=== PATIENT | male | born 1940 | race Caucasian/White ===

== ENCOUNTER 2016-12-21 19:54 | Emergency (ER) | payer OTHER ==
[~2016-12-21] VITALS: Ht 172.7 cm; Wt 79.0 kg
[~2016-12-21 19:54] MED LIST: ALLOPURINOL100 MG PO; ALLOPURINOL300 MG PO; APRESOLINE10 MG PO; APRESOLINE25 MG PO; APRESOLINE50 MG PO; ARICEPT10 MG PO; CLONIDINE HCL0.1 MG PO; COENZYME Q1010 M1 PO; DAILY VITAMIN1 EAC8 PO; FISH OIL 1,0001 EAC7 PO; HYDRALAZINE HCL10 MG PO; IMDUR30 MG PO; IMDUR60 MG PO; LANTUS 10100 UNITS/ SC; LEVEMIR FL100 UNIT/1 SC; LEVEMIR FL100 UNITS/ SC; LEVEMIR100 UNIT/2 SC; LEVOTHYROXINE50 MCG PO; LISINOPRIL5 MG PO; LO-DOSE ASPIRIN81 M1 PO; LO-DOSE ASPIRIN81 M2 PO; LOPRESSOR50 MG PO; METOPROLOL TART50 MG PO; NOVOLOG PE100 UNITS/ SC; OMEGA-31000 M1 PO; PANTOPRAZOLE SO40 MG PO; PRILOSEC20 MG PO; PROMETHAZINE HC25 M1 PO; RESVERATROL250 MG PO; SENNA PLUS TAB1 EACH PO; SYNTHROID50 MCG PO; THERAGRAN1 TABLET PO; THIAMINE HCL100 MG PO; TYLENOL REGULA325 MG PO; UBIQUINOL100 MG PO; UNABLE TO OBTAIN; VITAMIN D31000 UNI2 PO; VITAMIN D31000 UNIT PO; ZOFRAN4 MG PO; alpha lipoic acid
[2016-12-21 20:20] LABS: HEMATOCRIT 41.4 % (38.0-50.0); MCH 29.9 PG (29.0-34.0); MCHC 35.3 G/DL (30.0-36.0); MCV 84.8 FL (86-99); MEAN PLAT.VOLUME 9.3 uM^3 (9.0-12.4); PLATELET COUNT 251 K/uL (156-360); RBC DIS.WIDTH-CV 13.1 % (11.8-14.6); RBC DIS.WIDTH-SD 40.4 % (39-53); RED BLOOD COUNT 4.88 M/uL (4.00-5.50); WHITE BLOOD COUNT 12.6 K/uL (4.1-10.2)
[2016-12-21 20:28] LABS: CHLORIDE 102 mEq/L (99-109); POTASSIUM 4.9 mEq/L (3.7-5.4); SODIUM 135 mEq/L (136-147)
[2016-12-21 20:29] LABS: GLUCOSE 335 mg/dL (70-99)
[2016-12-21 20:31] LABS: ANION GAP 12 MEQ/L (2-14)
[2016-12-21 20:33] LABS: GFR ESTIMATE (CALCULATED) 24 mL/min/
[2016-12-21 20:34] LABS: UREA NITROGEN (BUN) 43 mg/dL (9-23)
[2016-12-21 22:42] LABS: ADD MIUA? YES; BILIRUBIN NEGATIVE; BLOOD MODERATE; COLOR YELLOW ((YELLOW)); GLUCOSE (STRIP) >=500; KETONES NEGATIVE; LEUKOCYTES NEGATIVE; NITRITE NEGATIVE; PROTEIN (STRIP) >=500; SPECIFIC GRAVITY 1.013 (1.000-1.030); UROBILINOGEN 0.2 MG/DL (0.2-1.0)
[2016-12-21 22:51] LABS: BACTERIA NONE SEEN /HPF; EPITHELIAL CELLS NONE SEEN /HPF; MUCUS NONE SEEN /LPF; RED BLOOD CELLS NONE SEEN /HPF (0-5); UCUL ADDED? NO; WHITE BLOOD CELLS 0-5 /HPF (0-5)
[2016-12-22 00:21] VITALS: BP 123/70
== END 2016-12-22 00:29 | disposition short-term general hospital (02) ==
LOC: EME 19:54
PROVIDERS: Emergency Medicine
DX: N17.9 Acute kidney failure, unspecified (principal); E86.0 Dehydration; R41.82 Altered mental status, unspecified; I12.9 Hypertensive chronic kidney disease with stage 1 through stage 4 chronic kidney disease, or unspecified chronic kidney disease; E11.22 Type 2 diabetes mellitus with diabetic chronic kidney disease; N18.9 Chronic kidney disease, unspecified; Z88.0 Allergy status to penicillin; Z87.891 Personal history of nicotine dependence
CPT/HCPCS: 70450; 71020; 80048; 81003; 85027; 93005; 99281; 99285; J7030

== ENCOUNTER 2017-01-24 10:42 | Observation (INO) | payer OTHER ==
[~2017-01-24] VITALS: Ht 172.7 cm; Wt 79.6 kg
[2017-01-24 12:05] LABS: BASOPHIL COUNT 0.1 K/uL (0-0.1); EOSINOPHIL (%) 1.1 % (0-5); EOSINOPHIL COUNT 0.2 K/uL (0-0.3); IMMATURE GRANULOCYTE (%) 0.7 % (0.0-0.7); IMMATURE GRANULOCYTE COUNT 0.1 K/uL; INSTRUMENT ABS NEUTROPHIL CT 12.3 K/uL; LYMPHOCYTE COUNT 1.7 K/uL (1.0-2.8); MCH 29.5 PG (29.0-34.0); MCHC 34.2 G/DL (30.0-36.0); MCV 86.4 FL (86-99); MEAN PLAT.VOLUME 9.5 uM^3 (9.0-12.4); MONOCYTE (%) 4.9 % (3-12); MONOCYTE COUNT 0.7 K/uL (0-0.8); NEUTROPHIL (%) 81.9 % (45-76); NEUTROPHIL COUNT 12.3 K/uL (1.8-6.4); PLATELET COUNT 245 K/uL (156-360); RBC DIS.WIDTH-CV 13.3 % (11.8-14.6); RBC DIS.WIDTH-SD 41.8 % (39-53)
[2017-01-24 12:16] LABS: CHLORIDE 105 mEq/L (99-109); POTASSIUM 5.9 mEq/L (3.7-5.4); SODIUM 137 mEq/L (136-147)
[2017-01-24 12:18] LABS: GLUCOSE 123 mg/dL (70-99)
[2017-01-24 12:19] LABS: ANION GAP 8 MEQ/L (2-14)
[2017-01-24 12:22] LABS: GFR ESTIMATE (CALCULATED) 26 mL/min/
[2017-01-24 12:23] LABS: UREA NITROGEN (BUN) 40 mg/dL (9-23)
[2017-01-24 12:26] LABS: TROP-I INTERPRETATION NEGATIVE; TROPONIN-I < 0.01 ng/mL (0.0-0.30)
[2017-01-24] MEDS ORDERED: HYDRALAZINE HCL10 MG PO (13:41)
[2017-01-24] MEDS ORDERED: NOVOLOG PE100 UNITS/ SC (13:44)
[2017-01-24] MEDS ORDERED: LEVEMIR FL100 UNIT/1 SC ×2 (13:46)
[2017-01-24] MEDS ORDERED: ISOSORBIDE MONO30 MG PO (13:47)
[2017-01-24] MEDS ORDERED: DAILY VITE1 EAC1 PO (13:48)
[2017-01-24] MEDS ORDERED: ASPIR 8181 M1 PO (13:50)
[2017-01-24] MEDS ORDERED: FISH OIL 1,0001 EAC7 PO (13:50)
[2017-01-24] MEDS ORDERED: CO Q-1030 MG PO (13:50)
[2017-01-24] MEDS ORDERED: THIAMINE HCL100 MG PO ×2 (13:51→14:01)
[2017-01-24 15:31] VITALS: BP 189/84
[2017-01-24 18:02] LABS: POINT-OF-CARE METER ID UU13113700
[2017-01-24 19:15] VITALS: BP 174/78
[2017-01-24 19:20] LABS: TROP-I INTERPRETATION NEGATIVE; TROPONIN-I < 0.01 ng/mL (0.0-0.30)
[2017-01-24 23:09] LABS: POINT-OF-CARE METER ID UU13113831
[2017-01-25 00:10] VITALS: BP 169/73
[2017-01-25 02:04] LABS: TROP-I INTERPRETATION NEGATIVE; TROPONIN-I < 0.01 ng/mL (0.0-0.30)
[2017-01-25 04:15] VITALS: BP 149/67
[2017-01-25 06:53] LABS: ANION GAP 7 MEQ/L (2-14); CHLORIDE 110 MEQ/L (99-109); SAMPLE HEMOLYSIS CHECK 0; SAMPLE ICTERIC CHECK 0; SAMPLE LIPEMIA CHECK 0; SODIUM 139 MEQ/L (136-147); UREA NITROGEN (BUN) 38 mg/dL (9-23)
[2017-01-25 06:54] LABS: GFR ESTIMATE (CALCULATED) 33 mL/min/; GLUCOSE 50 mg/dL (70-99); POTASSIUM 4.5 MEQ/L (3.7-5.4)
[2017-01-25 07:26] VITALS: BP 197/90
[2017-01-25 07:28] LABS: POINT-OF-CARE METER ID UU13113700
[2017-01-25 07:51] LABS: POINT-OF-CARE METER ID UU13113700
[2017-01-25 10:30] VITALS: BP 154/71
[2017-01-25 10:44] LABS: POINT-OF-CARE METER ID UU13113700
[2017-01-25] MEDS ORDERED: LEVEMIR FL100 UNIT/1 SC ×2 (11:50→11:51)
== END 2017-01-25 14:18 | disposition home or self-care (01) ==
LOC: EME → EDBD 10:42 → EDSEX 10:42 → EDOF 12:55 → 5WEST 12:55
PROVIDERS: Emergency Medicine; Hospitalist; Internal Medicine
DX: R55 Syncope and collapse (principal); F32.9 Major depressive disorder, single episode, unspecified; K21.9 Gastro-esophageal reflux disease without esophagitis; Z88.0 Allergy status to penicillin; Z87.891 Personal history of nicotine dependence; E86.0 Dehydration; R07.9 Chest pain, unspecified; F03.90 Unspecified dementia, unspecified severity, without behavioral disturbance, psychotic disturbance, mood disturbance, and anxiety; I25.10 Atherosclerotic heart disease of native coronary artery without angina pectoris; I25.2 Old myocardial infarction; E11.22 Type 2 diabetes mellitus with diabetic chronic kidney disease; N18.3 Chronic kidney disease, stage 3 (moderate); I12.9 Hypertensive chronic kidney disease with stage 1 through stage 4 chronic kidney disease, or unspecified chronic kidney disease; E78.5 Hyperlipidemia, unspecified; Z79.4 Long term (current) use of insulin; E03.9 Hypothyroidism, unspecified; E11.42 Type 2 diabetes mellitus with diabetic polyneuropathy; I95.1 Orthostatic hypotension; Z95.5 Presence of coronary angioplasty implant and graft; F43.10 Post-traumatic stress disorder, unspecified; E87.5 Hyperkalemia
CPT/HCPCS: 70450; 71010; 80048; 82948; 84443; 84484; 85025; 87641; 93005; 93306; 93880; 95819; 99281; 99285; G0378; J0360; J1644; J7030

== ENCOUNTER 2017-07-02 14:25 | Emergency (ER) | payer OTHER ==
[~2017-07-02] VITALS: Ht 175.3 cm; Wt 86.4 kg
[~2017-07-02 14:25] MED LIST changes: +ASPIR 8181 M1 PO; +CO Q-1030 MG PO; +DAILY VITE1 EAC1 PO; +ISOSORBIDE MONO30 MG PO
[2017-07-02 15:39] LABS: HEMATOCRIT 37.7 % (38.0-50.0); MCH 30.6 PG (29.0-34.0); MCHC 35.3 G/DL (30.0-36.0); MCV 86.7 FL (86-99); MEAN PLAT.VOLUME 9.9 uM^3 (9.0-12.4); PLATELET COUNT 247 K/uL (156-360); RBC DIS.WIDTH-CV 13.2 % (11.8-14.6); RBC DIS.WIDTH-SD 41.1 % (39-53); RED BLOOD COUNT 4.35 M/uL (4.00-5.50); WHITE BLOOD COUNT 15.8 K/uL (4.1-10.2)
[2017-07-02 15:47] LABS: CHLORIDE 106 mEq/L (99-109); POTASSIUM 4.7 mEq/L (3.7-5.4); SODIUM 137 mEq/L (136-147)
[2017-07-02 15:49] LABS: GLUCOSE 105 mg/dL (70-99)
[2017-07-02 15:50] LABS: ANION GAP 9 MEQ/L (2-14)
[2017-07-02 15:53] LABS: GFR ESTIMATE (CALCULATED) 28 mL/min/
[2017-07-02 15:54] LABS: UREA NITROGEN (BUN) 41 mg/dL (9-23)
[2017-07-02 16:01] LABS: TROP-I INTERPRETATION NEGATIVE; TROPONIN-I 0.01 ng/mL (0.0-0.30)
[2017-07-02 18:26] LABS: ADD MIUA? YES; BILIRUBIN NEGATIVE; BLOOD SMALL; COLOR YELLOW ((YELLOW)); GLUCOSE (STRIP) 50; KETONES NEGATIVE; LEUKOCYTES NEGATIVE; NITRITE NEGATIVE; PROTEIN (STRIP) >=500; SPECIFIC GRAVITY 1.017 (1.000-1.030); UROBILINOGEN 0.2 MG/DL (0.2-1.0)
[2017-07-02 19:11] LABS: BACTERIA RARE /HPF; CASTS PRESENT /LPF; CRYSTALS NONE SEEN; EPITHELIAL CELLS RARE /HPF; MUCUS RARE /LPF; RED BLOOD CELLS 0-5 /HPF (0-5); UCUL ADDED? NO; WHITE BLOOD CELLS RARE /HPF (0-5)
[2017-07-02 19:12] LABS: TROP-I INTERPRETATION NEGATIVE; TROPONIN-I 0.01 ng/mL (0.0-0.30)
[2017-07-02 19:36] VITALS: BP 140/66
== END 2017-07-02 19:53 | disposition home or self-care (01) ==
LOC: EME 14:25
PROVIDERS: Physician Assistant Medical
PROC: 3E0234Z Introduction of Serum, Toxoid and Vaccine into Muscle, Percutaneous Approach (ICD-10-PCS; principal; 2017-07-02)
DX: S01.81XA Laceration without foreign body of other part of head, initial encounter (principal); M25.512 Pain in left shoulder; W19.XXXA Unspecified fall, initial encounter; Z23 Encounter for immunization; F03.90 Unspecified dementia, unspecified severity, without behavioral disturbance, psychotic disturbance, mood disturbance, and anxiety; E11.22 Type 2 diabetes mellitus with diabetic chronic kidney disease; I12.9 Hypertensive chronic kidney disease with stage 1 through stage 4 chronic kidney disease, or unspecified chronic kidney disease; N18.9 Chronic kidney disease, unspecified; M25.78 Osteophyte, vertebrae; M48.02 Spinal stenosis, cervical region; Z79.4 Long term (current) use of insulin; Z79.82 Long term (current) use of aspirin; Z87.891 Personal history of nicotine dependence
CPT/HCPCS: 70450; 70486; 72125; 73030; 80048; 81003; 84484; 85027; 93005; 99281; 99283